=== PATIENT | female | born 2000 ===

== ENCOUNTER 2022-12-13 14:19 | Inpatient (IN) | payer BC ==
[2022-12-13 20:26] LABS: APPEARANCE,URINE SLT CLOUDY; BILIRUBIN,URINE NEGATIVE (NEGATIVE); COLOR,URINE YELLOW; GLUCOSE,URINE NEGATIVE (NEGATIVE); KETONES,URINE NEGATIVE (NEGATIVE); LEUKOCYTE ESTERASE,URINE NEGATIVE (NEGATIVE); NITRITE,URINE NEGATIVE (NEGATIVE); OCCULT BLOOD,URINE NEGATIVE (NEGATIVE); PROTEIN,URINE TRACE mg/dL (NEGATIVE); UROBILINOGEN,URINE 0.2 EU/dL (<2.0)
[2022-12-13 20:37] LABS: BASOPHILS PERCENT AUTO 0.1 % (0.0-1.5); EOSINOPHILS PERCENT AUTO 0.2 % (0.0-7.0); HEMATOCRIT 33.1 % (36.0-46.0); HEMOGLOBIN 11.3 g/dL (12.0-16.0); LYMPHOCYTES ABSOLUTE AUTO 1.5 K/uL (0.6-2.4); LYMPHOCYTES PERCENT AUTO 14.3 % (16.0-40.0); MEAN CORPUSCULAR HEMOGLOBIN 28.7 pg (27.0-32.0); MEAN CORPUSCULAR HGB CONC 34.1 g/dL (31.0-37.0); MONOCYTES ABSOLUTE AUTO 0.6 K/uL (0.0-0.8); MONOCYTES PERCENT AUTO 5.9 % (0.0-15.0); NEUTROPHILS ABSOLUTE AUTO 8.4 K/uL (1.4-5.7); NEUTROPHILS PERCENT AUTO 79.5 % (48.0-80.0); NRBC ABSOLUTE 0 K/uL; PLATELET COUNT,PLT 286 K/uL (150-400); RED BLOOD CELL COUNT 3.94 M/uL (4.30-5.90); WHITE BLOOD CELL COUNT,WBC 10.54 K/uL (4.0-11.0)
[2022-12-13 20:47] LABS: A/G RATIO 0.6 (0.9-1.6); ALBUMIN 2.6 g/dL (3.4-5.0); BILIRUBIN TOTAL 0.2 mg/dL (0.2-1.0); CALCIUM 8.8 mg/dL (8.5-10.1); CREATININE 0.5 mg/dL (0.6-1.0); EST CRCL DRUG DOSING (CG) 135.43 mL/min; POTASSIUM,K 3.5 mmol/L (3.5-5.1); URIC ACID 3.4 mg/dL (2.6-7.2)
[2022-12-13] MEDS ORDERED: Lidocaine 1% 50 ML MDV INJECT PRN (21:31)
[2022-12-13] MEDS ORDERED: Acetaminophen 500 MG Tab PO PRN (21:31)
[2022-12-13] MEDS ORDERED: Misoprostol 200 MCG Tab PO PRN (21:31)
[2022-12-13] MEDS ORDERED: Sodium Chloride 0.9% 2.5 ML Syringe FLUSH PRN (21:31)
[2022-12-13] MEDS ORDERED: Carboprost Tromethamine 250 MCG/1 mL Vial IM PRN (21:31)
[2022-12-13] MEDS ORDERED: Terbutaline 1 MG/ML SDV SUBCUT PRN (21:31)
[2022-12-13] MEDS ORDERED: Sodium Chloride 0.9% 20 ML SDV IV PRN (21:31)
[2022-12-13] MEDS ORDERED: Methylergonovine 0.2 MG/1 ML Amp IM PRN (21:31)
[2022-12-13] MEDS ORDERED: Tranexamic Acid IN NACL,ISO-OS 1,000 MG in Premix Bag 1 BAG IV PRN ×2 (21:31)
[2022-12-13] MEDS ORDERED: Water For Irrigation,Sterile 1,000 ML Container IRR PRN (21:31)
[2022-12-13] MEDS ORDERED: Sodium Chloride 0.9% 10 ML Syringe FLUSH PRN (21:31)
[2022-12-13] MEDS ORDERED: Oxytocin/0.9 % Sodium Chloride 30 UNIT/500 ML BAG IV SCH (21:45)
[2022-12-13] MEDS ORDERED: Lactated Ringers 1,000 ML IV SCH (21:45)
[2022-12-13] MEDS ORDERED: Calcium Carbonate 500 MG Tab.Chew PO PRN (21:50)
[2022-12-13] MEDS ORDERED: Nalbuphine 10 MG/0.5 ML Syringe IVPUSH SCH (22:00)
[2022-12-13] MEDS ORDERED: Misoprostol 25 MCG (1/4 of 100 MCG) Tab VAG PRN (22:30)
[2022-12-13 23:02] LABS: CREATININE,URINE RAND 197.7 mg/dL; PROTEIN CREATININE RATIO,URINE 0.2; PROTEIN,URINE RANDOM 38.4 mg/dL (<11.9)
[2022-12-14] MEDS ORDERED: Misoprostol 25 MCG (1/4 of 100 MCG) Tab VAG PRN (02:30)
[2022-12-14] MEDS ORDERED: Dinoprostone 10 MG Insert VAG ONE (08:37)
[2022-12-14] MEDS ORDERED: Oxytocin/0.9 % Sodium Chloride 30 UNIT/500 ML BAG IV SCH ×2 (12:00→15:15)
[2022-12-14] MEDS ORDERED: Ketorolac 30 MG/ML SDV ONE (13:46)
[2022-12-14] MEDS ORDERED: Dexamethasone 4 MG/ML 5 ML MDV ONE (13:46)
[2022-12-14] MEDS ORDERED: ceFAZolin 1 GM Vial ONE (13:46)
[2022-12-14] MEDS ORDERED: Ropivacaine 0.5% 5 MG/ML 30 ML SDV ONE ×2 (13:46→14:32)
[2022-12-14] MEDS ORDERED: fentaNYL 100 MCG/2 ML SDV ONE (13:46)
[2022-12-14] MEDS ORDERED: Oxytocin 10 Units/1 ML SDV ONE (13:46)
[2022-12-14] MEDS ORDERED: Ondansetron 4 MG/2 ML SDV ONE (13:46)
[2022-12-14] MEDS ORDERED: Morphine PF 10 MG/10 ML SDV ONE (13:47)
[2022-12-14] MEDS ORDERED: Bupivacaine 0.25% 30 ML SDV ONE (14:32)
[2022-12-14] MEDS ORDERED: EPINEPHrine 1 MG/1 ML Amp ONE (14:32)
[2022-12-14] MEDS ORDERED: Misoprostol 200 MCG Tab RECTAL PRN (15:12)
[2022-12-14] MEDS ORDERED: Oxytocin 10 Units/1 ML SDV IM PRN (15:12)
[2022-12-14] MEDS ORDERED: Ondansetron 4 MG/2 ML SDV IVPUSH PRN ×3 (15:12→15:30)
[2022-12-14] MEDS ORDERED: Methylergonovine 0.2 MG/1 ML Amp IM PRN (15:12)
[2022-12-14] MEDS ORDERED: Bisacodyl 10 MG Supp RECTAL PRN (15:12)
[2022-12-14] MEDS ORDERED: diphenhydrAMINE 50 MG/ML SDV IVPUSH PRN ×2 (15:12→15:30)
[2022-12-14] MEDS ORDERED: Acetaminophen/oxyCODONE 325-5 MG Tab PO PRN ×3 (15:12→15:30)
[2022-12-14] MEDS ORDERED: Lactated Ringers 1,000 ML IV SCH (15:15)
[2022-12-14] MEDS ORDERED: Albuterol 0.083% 2.5 MG/3 ML Neb Soln NEB PRN (15:30)
[2022-12-14] MEDS ORDERED: fentaNYL 50 MCG/ML SDV IVPUSH PRN (15:30)
[2022-12-14] MEDS ORDERED: fentaNYL 100 MCG/2 ML SDV IVPUSH PRN (15:30)
[2022-12-14] MEDS ORDERED: Morphine 2 MG/ML SYRINGE IVPUSH PRN (15:30)
[2022-12-14] MEDS ORDERED: Metoclopramide 10 MG/2 ML SDV IVPUSH PRN (15:30)
[2022-12-14] MEDS ORDERED: Naloxone 0.4 MG/ML SDV IVPUSH PRN (15:30)
[2022-12-14] MEDS ORDERED: ePHEDrine 50 MG/ML SDV IVPUSH PRN (15:30)
[2022-12-14] MEDS ORDERED: HYDROmorphone 1 MG/ML Syringe IVPUSH PRN (15:30)
[2022-12-14] MEDS ORDERED: droPERidol 5 MG/2 ML SDV IVPUSH PRN (15:30)
[2022-12-14 15:31] LABS: PH,UMBILICAL ARTERIAL 7.146 (7.18-7.38); PH,UMBILICAL VENOUS 7.167 (7.25-7.45)
[2022-12-14] MEDS: Ketorolac 30 MG/ML SDV IVPUSH SCH (20:24)
[2022-12-14] MEDS: Docusate Sodium 100 MG Cap PO SCH (20:31)
[2022-12-15] MEDS: Ketorolac 30 MG/ML SDV IVPUSH SCH ×4 (02:29→15:52)
[2022-12-15 07:06] LABS: HEMATOCRIT 29.7 % (36.0-46.0)
[2022-12-15] MEDS ORDERED: Nalbuphine 10 MG/0.5 ML Syringe IVPUSH ONE (08:52)
[2022-12-15] MEDS ORDERED: diphenhydrAMINE 50 MG/ML SDV IVPUSH PRN (08:54)
[2022-12-15] MEDS: Docusate Sodium 100 MG Cap PO SCH ×2 (09:02→21:03)
[2022-12-15] MEDS: Prenatal Multivitamin with Calcium/Folic Acid/Iron Tab PO SCH (09:02)
[2022-12-15] MEDS: Lanolin 100% Cream 7 GM Tube TOP PRN (21:04)
[2022-12-15] MEDS: Ibuprofen 800 MG Tab PO PRN (22:05)
[2022-12-16] MEDS: Ibuprofen 800 MG Tab PO PRN ×2 (06:26→23:10)
[2022-12-16] MEDS: Prenatal Multivitamin with Calcium/Folic Acid/Iron Tab PO SCH (09:06)
[2022-12-16] MEDS: Docusate Sodium 100 MG Cap PO SCH ×2 (09:06→20:22)
[2022-12-16] MEDS ORDERED: Acetaminophen 500 MG Tab PO PRN (13:27)
[2022-12-16] MEDS: Lanolin 100% Cream 7 GM Tube TOP PRN (23:22)
[2022-12-17] MEDS: Ibuprofen 800 MG Tab PO PRN ×2 (07:43→16:09)
[2022-12-17] MEDS: Lanolin 100% Cream 7 GM Tube TOP PRN (07:44)
[2022-12-17] MEDS: Docusate Sodium 100 MG Cap PO SCH (09:13)
[2022-12-17] MEDS: Prenatal Multivitamin with Calcium/Folic Acid/Iron Tab PO SCH (09:13)
[2022-12-17] MEDS ORDERED: NIFEdipine 30 MG Tab.ER PO SCH (09:30)
== END 2022-12-17 16:30 | disposition home or self-care (01) | DRG 540 ==
LOC: MW.OB 14:19 → OBSVTOIN 12-14 14:19 → MW.OB 12-14 22:46
PROVIDERS: ADMIT Obstetrics & Gynecology; ATTEND Obstetrics & Gynecology
PROC: 10D00Z1 Extraction of Products of Conception, Low, Open Approach (ICD-10-PCS; principal; 2022-12-14)
DX: O13.4 Gestational [pregnancy-induced] hypertension without significant proteinuria, complicating childbirth (principal); Z37.0 Single live birth; O32.8XX0 Maternal care for other malpresentation of fetus, not applicable or unspecified; O76 Abnormality in fetal heart rate and rhythm complicating labor and delivery; Z3A.37 37 weeks gestation of pregnancy
CPT/HCPCS: 36415; 59025; 80053; 81003; 82570; 82803; 84112; 84156; 84550; 85014; 85018; 85025; 86592; 86850; 86900; 86901; A9270-GY; J0171; J0690; J1100; J1200; J1885; J2274; J2300; J2405; J2590; J2795; J3010; J3490; J7120